=== PATIENT | female | born 1945 | race Caucasian/White ===

== ENCOUNTER 2016-09-21 14:41 | Observation (INO) | payer MEDICARE, OTHER ==
[~2016-09-21] VITALS: Ht 157.5 cm; Wt 144.1 kg
[~2016-09-21 14:41] MED LIST: CHOL50006 PO; DICL50TA2 PO; DIGO0.12 PO; DIPH25 PO; DUONI NEB; HYDRO.5%T TOP; LISI2.5T3 PO; MAGN500T4 PO; METO25TA6 PO; ONDA4 PO; OXYC5 PO; PROT40TA PO; REGL5TAB PO; ROBIDMS PO; WARF-20 PO
[2016-09-21 14:56] VITALS: BP 133/81; PULSE 84; RESP 22; TEMP 98.7; O2SAT 98
[2016-09-21 15:07] VITALS: RESP 22; O2SAT 96
--- NOTE | 2016-09-21 15:11 | PD ---
HPI Chief Complaint: Respiratory Symptoms Time Seen by Provider: 15:04 Travel History International Travel<30 days: No Contact w/Intl Traveler<30days: No Traveled to known affect area: No History of Present Illness HPI 71-year-old female patient with history of atrial fibrillation on Coumadin, CHF , asthma, SLE, rheumatoid arthritis, presents to the ER today because she states that she had her Lasix decreased by half by Dr. Thompson, her mechanical maintenance engineer , because of dyspnea on exertion and shortness of breath over the last week's worsening in the last few days. She has noticed bilateral leg swelling. She has been coughing without significant phlegm production. She denies any fevers , chest pains, or other symptoms. She states that the symptoms worsen with any exertion or laying down, uses 2 pillows to sleep. Modifying Factors: None Associated Signs & Symptoms: Shortness of breath Risk Factors: CHF PFSH Past Medical History Hx Anticoagulant Therapy: Yes (WARFARIN) Asthma: No Atrial Fibrillation: Yes Autoimmune Disease: Yes (LUPUS, RA) Heart Rhythm Problems: Yes (AFIB) Cancer: No Cardiovascular Problems: No High Cholesterol: No Chemotherapy: No Chest Pain: No Congestive Heart Failure: No COPD: Yes Cerebrovascular Accident: No Diabetes: No Endocrine: No Genitourinary: No Hypertension: Yes Immune Disorder: Yes Musculoskeletal: Yes (OSTEOPOROSIS) Neurologic: No Psychiatric: No Reproductive: No Respiratory: Yes (ASTHMA) Migraines: No Seizures: No Sleep Apnea: Yes Tetanus Vaccination: Unknown Influenza Vaccination: Yes Past Surgical History Abdominal Surgery: No AICD: No Arteriovenous Shunt: No Cardiac Surgery: No Ear Surgery: No Eye Surgery: No Genitourinary Surgery: No Gynecologic Surgery: Yes (HYSTERECTOMY) Hysterectomy: Yes Insulin Pump: No Joint Replacement: No Oral Surgery: No Pacemaker: No Thoracic Surgery: No Social History Alcohol Use: Yes (OCCASIONALLY) Tobacco Use: No Substance Use: No Allergies-Medications (Allergen,Severity, Reaction): Coded Allergies: Talwin (Verified Allergy, Severe, Hives, 09/21/16) Verapamil (Verified Allergy, Severe, Hives, 09/21/16) Contrast Media (Verified Allergy, Unknown, 09/21/16) Reported Meds & Prescriptions Reported Meds & Active Scripts Active Reported Furosemide 40 Mg Tab 40 Mg PO DAILY Warfarin 3 Mg Tab 3.75 Mg PO HS Metoprolol Succinate ER 24 HR (Metoprolol Succinate) 50 Mg Tab 50 Mg PO DAILY Mag-Delay (Magnesium Chloride) 64 Mg Tab Unknown Dose PO DAILY Digoxin 0.25 Mg Tab 0.0625 Mg PO FRIDAY TAKEN FRI,FRI, Vitamin D-1000 (Cholecalciferol) 1,000 Unit Tab 5,000 Units PO DAILY Review of Systems Except as stated in HPI: all other systems reviewed are Neg Physical Exam Narrative GENERAL: Well-developed elderly white female patient currently in mild respiratory distress. Awake and oriented 3. SKIN: Focused skin assessment warm/dry. HEAD: Atraumatic. Normocephalic. EYES: Pupils equal and round. No scleral icterus. No injection or drainage. ENT: No nasal bleeding or discharge. Mucous membranes pink and moist. NECK: Trachea midline. No JVD. CARDIOVASCULAR: Irregularly irregular. RESPIRATORY: No accessory muscle use. Decreased throughout bilaterally. GASTROINTESTINAL: Abdomen soft, non-tender, nondistended. Hepatic and splenic margins not palpable. MUSCULOSKELETAL: No obvious deformities. No clubbing. No cyanosis. Bilateral pitting edema the legs. NEUROLOGICAL: Awake and alert. No obvious cranial nerve deficits. Motor grossly within normal limits. Normal speech. PSYCHIATRIC: Appropriate mood and affect; insight and judgment normal. Data Data Last Documented VS Vital Signs Date Time Temp Pulse Resp B/P Pulse Ox O2 Delivery O2 Flow Rate FiO2 09/21/16 15:07 96 Nasal Cannula 2 09/21/16 15:07 22 09/21/16 14:56 98.7 84 133/81 Orders Complete Blood Count With Diff (09/21/16 15:04) Comprehensive Metabolic Panel (09/21/16 15:04) B-Type Natriuretic Peptide (09/21/16 15:04) Act Partial Throm Time (Ptt) (09/21/16 15:04) Prothrombin Time / Inr (Pt) (09/21/16 15:04) Ckmb (Isoenzyme) Profile (09/21/16 15:04) Troponin I (09/21/16 15:04) Iv Access Insert/Monitor (09/21/16 15:04) Electrocardiogram (09/21/16 15:04) Ecg Monitoring (09/21/16 15:04) Oximetry (09/21/16 15:04) Oxygen Administration (09/21/16 15:04) Chest, Single Ap (09/21/16 15:04) Sodium Chloride 0.9% Flush (Ns Flush) (09/21/16 15:15) Acetaminophen (Tylenol) (09/21/16 16:00) Furosemide Inj (Lasix Inj) (09/21/16 16:00) Labs Laboratory Tests Test 09/21/16 15:10 White Blood Count 9.5 TH/MM3 Red Blood Count 3.95 MIL/MM3 Hemoglobin 11.9 GM/DL Hematocrit 37.6 % Mean Corpuscular Volume 95.3 FL Mean Corpuscular Hemoglobin 30.2 PG Mean Corpuscular Hemoglobin 31.7 % Concent Red Cell Distribution Width 19.0 % Platelet Count 210 TH/MM3 Mean Platelet Volume 8.3 FL Neutrophils (%) (Auto) 76.6 % Lymphocytes (%) (Auto) 12.3 % Monocytes (%) (Auto) 8.5 % Eosinophils (%) (Auto) 2.1 % Basophils (%) (Auto) 0.5 % Neutrophils # (Auto) 7.3 TH/MM3 Lymphocytes # (Auto) 1.2 TH/MM3 Monocytes # (Auto) 0.8 TH/MM3 Eosinophils # (Auto) 0.2 TH/MM3 Basophils # (Auto) 0.0 TH/MM3 CBC Comment AUTO DIFF Differential Comment AUTO DIFF CONFIRMED Platelet Estimate NORMAL Platelet Morphology Comment NORMAL Basophilic Stippling FAINT Prothrombin Time 26.5 SEC Prothromb Time International 2.3 RATIO Ratio Activated Partial 33.4 SEC Thromboplast Time Sodium Level 141 MEQ/L Potassium Level 4.5 MEQ/L Chloride Level 102 MEQ/L Carbon Dioxide Level 31.9 MEQ/L Anion Gap 7 MEQ/L Blood Urea Nitrogen 34 MG/DL Creatinine 1.80 MG/DL Estimat Glomerular Filtration 28 ML/MIN Rate Random Glucose 135 MG/DL Calcium Level 8.4 MG/DL Total Bilirubin 0.7 MG/DL Aspartate Amino Transf 22 U/L (AST/SGOT) Alanine Aminotransferase 25 U/L (ALT/SGPT) Alkaline Phosphatase 100 U/L Total Creatine Kinase 50 U/L Troponin I LESS THAN 0.02 NG/ML B-Type Natriuretic Peptide 598 PG/ML Total Protein 8.0 GM/DL Albumin 3.4 GM/DL MDM Medical Decision Making Medical Screen Exam Complete: Yes Emergency Medical Condition: Yes Medical Record Reviewed: Yes Interpretation(s) EKG shows A. fib at a rate of 78 bpm. Laboratory Tests Test 09/21/16 15:10 Red Blood Count 3.95 MIL/MM3 (4.00-5.30) Mean Corpuscular Hemoglobin 31.7 % Concent (32.0-36.0) Red Cell Distribution Width 19.0 % (11.6-17.2) Neutrophils (%) (Auto) 76.6 % (16.0-70.0) Monocytes (%) (Auto) 8.5 % (0.0-8.0) Basophilic Stippling FAINT (NORMAL) Prothrombin Time 26.5 SEC (9.8-11.6) Activated Partial 33.4 SEC Thromboplast Time (24.3-30.1) Blood Urea Nitrogen 34 MG/DL (7-18) Creatinine 1.80 MG/DL (0.50-1.00) Estimat Glomerular Filtration 28 ML/MIN (>89) Rate Random Glucose 135 MG/DL (74-106) Calcium Level 8.4 MG/DL (8.5-10.1) Troponin I LESS THAN 0.02 NG/ML (0.02-0.05) B-Type Natriuretic Peptide 598 PG/ML (0-100) Last 24 hours Impressions Chest X-Ray 09/21/16 1504 Signed Impressions: Service Date/Time: Wednesday, September 21, 2016 15:10 - CONCLUSION: No infiltrate or other acute abnormality demonstrated. Mild, stable compensated cardiomegaly. Wenceslao Hill MD Differential Diagnosis Shortness of breath, dyspnea on exertionCHF versus asthma exacerbation versus pneumonia Narrative Course Chest x-ray did not show any signs of pneumonia, compensated. Her lab work is fairly unremarkable. Her BNP is 590. However, patient is quite symptomatic and Lasix was given in the ER. At this point, my plan would be to admit her for further treatment. Case was discussed with Dr. Wise for admission. Diagnosis Primary Impression: CHF exacerbation Admitting Information Admitting Physician Requests: it Kaila Zuniga MD Sep 21, 2016 15:11
[2016-09-21] MEDS ORDERED: SODIUM CHLORIDE 0.9% FLUSH 10 ML FLUSH IVF PRN (15:15)
[2016-09-21 15:19] LABS: AUTOMATED NEUTROPHIL # 7.3 TH/MM3 (1.8-7.7); BASOPHIL % 0.5 % (0.0-2.0); EOSINOPHIL # 0.2 TH/MM3 (0-0.4); EOSINOPHIL % 2.1 % (0.0-4.0); HEMATOCRIT 37.6 % (35.0-46.0); LYMPH % 12.3 % (9.0-44.0); LYMPHOCYTE # 1.2 TH/MM3 (1.0-4.8); MEAN CELL VOLUME 95.3 FL (80.0-100.0); MEAN CORPUSCULAR HEMOGLOBIN 30.2 PG (27.0-34.0); MEAN CORPUSCULAR HGB CONC 31.7 % (32.0-36.0); MONO % 8.5 % (0.0-8.0); NEUT % 76.6 % (16.0-70.0); PLATELET COUNT 210 TH/MM3 (150-450); RED BLOOD COUNT 3.95 MIL/MM3 (4.00-5.30); WHITE BLOOD COUNT 9.5 TH/MM3 (4.0-11.0)
[2016-09-21 15:30] LABS: CHLORIDE 102 MEQ/L (98-107); POTASSIUM 4.5 MEQ/L (3.5-5.1); SODIUM (NA) 141 MEQ/L (136-145)
[2016-09-21] MEDS ORDERED: WARF-58 PO (15:32)
[2016-09-21] MEDS ORDERED: VITA1000 PO (15:32)
[2016-09-21] MEDS ORDERED: MAG-TAB PO (15:32)
[2016-09-21] MEDS ORDERED: DIGO0.25 PO (15:32)
[2016-09-21] MEDS ORDERED: METO50TA11 PO (15:32)
[2016-09-21] MEDS ORDERED: FURO40TA PO (15:32)
[2016-09-21 15:34] LABS: ANION GAP 7 MEQ/L (5-15); BICARBONATE 31.9 MEQ/L (21.0-32.0); BLOOD UREA NITROGEN 34 MG/DL (7-18); HEMO FLAGS AUTO DIFF
[2016-09-21 15:37] LABS: ALT (GPT) 25 U/L (10-53); AST (GOT) 22 U/L (15-37); GLOMERULAR FILTRATION RATE 28 ML/MIN (>89)
[2016-09-21 15:38] LABS: TOTAL BILIRUBIN ADULT 0.7 MG/DL (0.2-1.0)
--- NOTE | 2016-09-21 15:39 | RADHPO ---
EXAM DATE/TIME: 09/21/2016 15:10 [facility] COMPARISON: No previous studies available for comparison. INDICATIONS : Shortness of breath. MEDICAL HISTORY : Hypertension. Chronic obstructive pulmonary disease. Emphysema. A-fib. SURGICAL HISTORY : None. ENCOUNTER: Initial ACUITY: 3 weeks PAIN SCORE: 0/10 LOCATION: Bilateral chest FINDINGS: No infiltrate seen. No pleural effusion or pneumothorax. Mild cardiomegaly and mediastinal vessel tor tuosity again noted. Severe chronic arthropathy again seen of both glenohumeral joints. CONCLUSION: No infiltrate or other acute abnormality demonstrated. Mild, stable compensated cardiomegaly. Wenceslao Hill MD on September 21, 2016 at 15:36 Board Certified Radiologist. This report was verified electronically.
[2016-09-21 15:40] LABS: ALKALINE PHOSPHATASE 100 U/L (45-117); APTT (PATIENT) 33.4 SEC (24.3-30.1); INTERNATIONAL NORMALIZED RATIO 2.3 RATIO; PROTHROMBIN TIME - PATIENT 26.5 SEC (9.8-11.6)
[2016-09-21 15:54] LABS: CREATINE KINASE 50 U/L (26-192)
[2016-09-21 15:59] LABS: PLATELET ESTIMATE SMEAR NORMAL (NORMAL); PLATELET MORPHOLOGY NORMAL (NORMAL); SCAN/DIFF AUTO DIFF CONFIRMED
[2016-09-21] MEDS ORDERED: FUROSEMIDE 40 MG/4 ML VIAL IV PUSH ONE (16:00)
[2016-09-21] MEDS ORDERED: ACETAMINOPHEN 325 MG TAB PO ONE (16:00)
[2016-09-21] MEDS ORDERED: SODIUM CHLORIDE 0.9% FLUSH 10 ML FLUSH IV FLUSH PRN (17:00)
[2016-09-21] MEDS ORDERED: MAGNESIUM HYDROXIDE SUSP 30 ML CUP PO PRN (17:00)
[2016-09-21] MEDS ORDERED: HEPARIN SODIUM - SQ 10,000 UNITS/ML VIAL SQ SCH (17:00)
[2016-09-21] MEDS ORDERED: SENNOSIDES 8.6 MG TAB PO PRN (17:00)
[2016-09-21] MEDS ORDERED: LACTULOSE SYRUP 20 GM/30 ML CUP PO PRN (17:00)
[2016-09-21] MEDS ORDERED: BISACODYL 10 MG SUPP RECTAL PRN (17:00)
[2016-09-21] MEDS ORDERED: NALOXONE HCL 0.4 MG/ML AMP IV PRN (17:00)
--- NOTE | 2016-09-21 17:51 | HHI.HP ---
[facility] Service [facility] Primary Care Physician Shauna Mendoza MD Admission Diagnosis CHF exacerbation Diagnoses: (1) Acute on chronic diastolic congestive heart failure Diagnosis: Principal (2) Shortness of breath dyspnea Diagnosis: Principal (3) Elevated brain natriuretic peptide (BNP) level Diagnosis: Principal (4) Chronic kidney disease, stage 3 Diagnosis: Secondary (5) Hypertension Diagnosis: Secondary (6) Atrial fibrillation Diagnosis: Secondary Chief Complaint: Shortness of breath and dyspnea Travel History International Travel<30 Days: No Contact w/Intl Traveler <30 Da: No Traveled to Known Affected Are: No History of Present Illness Written by Mani Haney, acting as scribe for Dr. Wise on 09/21/16 at 17: 27. 71-year-old female with known history of chronic diastolic congestive heart failure, chronic kidney disease stage III, pulmonary hypertension, atrial fibrillation, obstructive sleep apnea, history of tobacco use, daily ETOH use, Mnire's disease, Lupus, Rheumatoid arthritis who presented to hospital because of shortness of breath, dyspnea on exertion. Patient indicates all of her symptoms started back around September 03 when she went to her primary medical doctor's office and was told to discontinue her Lasix. She went to her casting trucker office a few days later, Dr. Thompson who notified her to continue taking her Lasix at half dose of 20 mg a day. Patient states that ever since she decreased her Lasix she progressively got more short of breath, dyspnea on exertion, lower extremity swelling. Patient states that she drinks 4+ bottle sales a day and to Gin and tonics at least 3 times a week. She denies being told to be on a fluid restriction. She does not check her weights daily. She indicates that anything she has lost over 20 pounds since the last time she was here in the hospital. Patient indicates that whenever she gets short of breath and dyspneic she develops a pressure type sensation over her entire lower ribs whenever she takes a deep breath. She is not expressing any discomfort at this time. Denies any nausea, vomiting, diaphoresis, lightheadedness, dizziness. Review of Systems Constitutional: COMPLAINS OF: Weight loss, DENIES: Diaphoretic episodes, Fatigue, Fever, Weight gain, Chills, Dizziness, Change in appetite, Night Sweats Eyes: DENIES: Blurred vision, Diplopia, Eye inflammation, Eye pain, Vision loss , Photosensitivity, Double Vision Ears, nose, mouth, throat: DENIES: Vertigo, Nasal discharge, Throat pain, Ear Pain, Running Nose, Sinus Pain Respiratory: COMPLAINS OF: Shortness of breath, DENIES: Apneas, Cough, Snoring , Wheezing, Hemoptysis, Sputum production Cardiovascular: COMPLAINS OF: Dyspnea on Exertion, DENIES: Chest pain, Palpitations, Syncope, Lower Extremity Edema, Orthopnea Gastrointestinal: DENIES: Abdominal pain, Black stools, Bloody stools, Constipation, Diarrhea, Nausea, Vomiting, Difficulty Swallowing, Anorexia Neurologic: DENIES: Abnormal gait, Headache, Localized weakness, Paresthesias, Seizures, Speech Problems, Tremor, Poor Balance Past Family Social History Past Medical History Lupus Atrial fibrillation Rheumatoid arthritis Obstructive sleep apnea Pulmonary Hypertension Mnire's disease Chronic kidney disease stage III Chronic diastolic congestive heart failure Past Surgical History Hysterectomy Reported Medications Reported Meds & Active Scripts Active Reported Furosemide 40 Mg Tab 40 Mg PO DAILY Warfarin 3 Mg Tab 3.75 Mg PO HS Metoprolol Succinate ER 24 HR (Metoprolol Succinate) 50 Mg Tab 50 Mg PO DAILY Mag-Delay (Magnesium Chloride) 64 Mg Tab Unknown Dose PO DAILY Digoxin 0.25 Mg Tab 0.0625 Mg PO FRIDAY TAKEN FRI,FRI, Vitamin D-1000 (Cholecalciferol) 1,000 Unit Tab 5,000 Units PO DAILY Allergies: Coded Allergies: Talwin (Verified Allergy, Severe, Hives, 09/21/16) Verapamil (Verified Allergy, Severe, Hives, 09/21/16) Contrast Media (Verified Allergy, Unknown, 09/21/16) Family History Reviewed and significant for mother and father living to old age, father to 103 and mother to 93 mother had osteoporosis Social History Patient quit smoking 40 years ago, prior to that she states that she smoke 1 1- 2 packs a week for 10 years, Patient does drink 1 - 3 Gin and tonics daily. Patient denies any illicit drug use Physical Exam Vital Signs Vital Signs Date Time Temp Pulse Resp B/P Pulse Ox O2 Delivery O2 Flow Rate FiO2 09/21/16 15:07 96 Nasal Cannula 2 09/21/16 15:07 22 96 Nasal Cannula 2 09/21/16 15:02 98 Nasal Cannula 2 09/21/16 14:56 98.7 84 22 133/81 98 Physical Exam GENERAL: Well-developed, obese with BMI 47.2, in no acute distress. alert and orientated HEENT: Head is normocephalic without any lesions or masses noted. Facial features are symmetric. Eyes: Pupils equal round reactive to light. Extraocular muscles are intact. Conjunctivae were clear. Oropharyngeal: Pharynx without any erythema edema. Tongue is midline without deviation. Buccal mucosa is moist without any masses or lesions NECK: Supple without any masses. Trachea midline no deviation. No JVD, no bruits are appreciated CARDIAC: Irregular rhythm, irregular rate. S1/S2 are heard. No murmurs gallops or rubs. LUNGS: Diminished breath sounds noted bilaterally. No wheeze, rhonchi or rales. No use of accessory muscles on inspiration or expiration. ABDOMEN: Soft, nontender. Nondistended. Bowel sounds heard in all 4 quadrants. No organomegaly or masses. Negative rebound, negative guarding EXTREMITIES: 2+ pitting edema noted bilateral lower extremities, mild erythema noted on the medial aspect of the right lower extremity pulses are equal bilaterally. No cyanosis or clubbing NEUROLOGY: Mood and affect appear appropriate. Cranial nerves II through XII grossly intact. Muscle strength 5/5 in upper and lower extremities bilaterally. Deep tendon reflexes are 2+ in upper and lower extremities bilaterally. Laboratory Laboratory Tests Test 09/21/16 15:10 White Blood Count 9.5 Red Blood Count 3.95 Hemoglobin 11.9 Hematocrit 37.6 Mean Corpuscular Volume 95.3 Mean Corpuscular Hemoglobin 30.2 Mean Corpuscular Hemoglobin 31.7 Concent Red Cell Distribution Width 19.0 Platelet Count 210 Mean Platelet Volume 8.3 Neutrophils (%) (Auto) 76.6 Lymphocytes (%) (Auto) 12.3 Monocytes (%) (Auto) 8.5 Eosinophils (%) (Auto) 2.1 Basophils (%) (Auto) 0.5 Neutrophils # (Auto) 7.3 Lymphocytes # (Auto) 1.2 Monocytes # (Auto) 0.8 Eosinophils # (Auto) 0.2 Basophils # (Auto) 0.0 CBC Comment AUTO DIFF Differential Comment AUTO DIFF CONFIRMED Platelet Estimate NORMAL Platelet Morphology Comment NORMAL Basophilic Stippling FAINT Prothrombin Time 26.5 Prothromb Time International 2.3 Ratio Activated Partial 33.4 Thromboplast Time Sodium Level 141 Potassium Level 4.5 Chloride Level 102 Carbon Dioxide Level 31.9 Anion Gap 7 Blood Urea Nitrogen 34 Creatinine 1.80 Estimat Glomerular Filtration 28 Rate Random Glucose 135 Calcium Level 8.4 Total Bilirubin 0.7 Aspartate Amino Transf 22 (AST/SGOT) Alanine Aminotransferase 25 (ALT/SGPT) Alkaline Phosphatase 100 Total Creatine Kinase 50 Troponin I LESS THAN 0.02 B-Type Natriuretic Peptide 598 Total Protein 8.0 Albumin 3.4 Result Diagram: 09/21/16 1510 09/21/16 1510 Imaging Last Impressions Chest X-Ray 09/21/16 1504 Signed Impressions: Service Date/Time: Friday, September 21, 2016 15:10 - CONCLUSION: No infiltrate or other acute abnormality demonstrated. Mild, stable compensated cardiomegaly. Wenceslao Hill MD Assessment and Plan Assessment and Plan //Acute on chronic diastolic congestive heart failure -Patient presented with shortness of breath, dyspnea on exertion, lower extremity edema -Likely secondary to multiple reasons to include decrease in diuretic, increase fluid intake at home, no daily management of her CHF -Patient did have elevated BNP, however chest x-ray did not indicate any congestive pattern -Patient given Lasix 40 mg IV 1, we'll continue Lasix at higher dose 40 mg daily -Most recent echocardiogram 10/25/15 shows ejection fraction 55%. Normal systolic function. Very mild aortic stenosis -Beta shelia will be continued, med reconciliation needs to be updated, does indicate she was on BEULAH inhibitor this needs to be confirmed -Fluid restriction 1500 -Patient does not want to have Mcdaniels placed for accurate measurement of fluid input/output //Chronic kidney disease stage III -Upon review medical records it does appear as if her renal functions are at baseline -Continue monitor renal function -Avoid nephrotoxins //Chronic atrial fibrillation -Continue home medication to include beta shelia, digoxin and Coumadin //Alcohol abuse, monitor for withdrawals -Start thiamine and folic acid -Ativan as needed for seizures -Librium as needed for withdrawals //DVT prevention -Patient on Coumadin with INR 2.2 Code Status Full code Discussed Condition With discussed with patient, nurse, ED physician. This note was transcribed by scribbry [Mani Haney]. I, Dr. Maciej Wise personally performed the history, physical exam, and medical decision making; and confirmed the accuracy of the information in the transcribed note. Authenticated by Dr. Maciej Wise on 09/22/16 at 18:28. Problem Qualifiers (1) Hypertension: Qualified Code: I15.9 - Secondary hypertension (2) Atrial fibrillation: Qualified Code: I48.91 - Atrial fibrillation, unspecified type Mani Haney Sep 21, 2016 17:51 Maciej Wise MD Sep 22, 2016 18:29
[2016-09-21] MEDS ORDERED: chlordiazePOXIDE 25 MG CAP PO PRN (18:00)
[2016-09-21] MEDS ORDERED: LORazepam 2 MG/ML VIAL IV PUSH PRN (18:00)
[2016-09-21 18:10] VITALS: BP 130/86
[2016-09-21] MEDS: THIAMINE HCL 100 MG TAB PO SCH (19:38)
[2016-09-21] MEDS: FOLIC ACID 1 MG TAB PO SCH (19:38)
[2016-09-21 20:08] VITALS: PULSE 90
[2016-09-21 20:52] VITALS: BP 122/74; PULSE 53; RESP 12; TEMP 97.1; O2SAT 96
[2016-09-21] MEDS: ACETAMINOPHEN 500 MG CPLT PO PRN (20:52)
[2016-09-21] MEDS: DOCUSATE SODIUM 50 MG/SENNA 8.6 MG TAB PO SCH (20:52)
[2016-09-21] MEDS: WARFARIN SOD 4 MG TAB PO SCH (20:52)
[2016-09-21] MEDS: SODIUM CHLORIDE 0.9% FLUSH 10 ML FLUSH IV FLUSH SCH (20:52)
[2016-09-22] VITALS (8 sets, daily range): BP systolic 106–125; BP diastolic 70–88; PULSE 75–101; RESP 18–22; TEMP 96.6–98.2; O2SAT 92–99
[2016-09-22 06:34] LABS: AUTOMATED NEUTROPHIL # 5.4 TH/MM3 (1.8-7.7); BASOPHIL # 0.1 TH/MM3 (0-0.2); BASOPHIL % 0.8 % (0.0-2.0); EOSINOPHIL # 0.3 TH/MM3 (0-0.4); EOSINOPHIL % 3.8 % (0.0-4.0); HEMATOCRIT 33.4 % (35.0-46.0); HEMO FLAGS DIFF FINAL; LYMPHOCYTE # 1.3 TH/MM3 (1.0-4.8); MEAN CELL VOLUME 94.7 FL (80.0-100.0); MEAN CORPUSCULAR HEMOGLOBIN 29.9 PG (27.0-34.0); MEAN CORPUSCULAR HGB CONC 31.5 % (32.0-36.0); MONO % 8.7 % (0.0-8.0); NEUT % 69.7 % (16.0-70.0); PLATELET COUNT 176 TH/MM3 (150-450); RED BLOOD COUNT 3.53 MIL/MM3 (4.00-5.30); RED CELL DISTRIBUTION WIDTH 18.6 % (11.6-17.2); WHITE BLOOD COUNT 7.8 TH/MM3 (4.0-11.0)
[2016-09-22 06:39] LABS: CHLORIDE 103 MEQ/L (98-107); POTASSIUM 4.6 MEQ/L (3.5-5.1); SODIUM (NA) 142 MEQ/L (136-145)
[2016-09-22 06:44] LABS: ANION GAP 5 MEQ/L (5-15); BICARBONATE 34.5 MEQ/L (21.0-32.0); BLOOD UREA NITROGEN 35 MG/DL (7-18)
[2016-09-22 06:47] LABS: ALT (GPT) 22 U/L (10-53); AST (GOT) 13 U/L (15-37); GLOMERULAR FILTRATION RATE 26 ML/MIN (>89)
[2016-09-22 06:49] LABS: TOTAL BILIRUBIN ADULT 0.5 MG/DL (0.2-1.0)
[2016-09-22 06:50] LABS: ALKALINE PHOSPHATASE 93 U/L (45-117)
[2016-09-22 06:56] LABS: INTERNATIONAL NORMALIZED RATIO 2.2 RATIO; PROTHROMBIN TIME - PATIENT 24.9 SEC (9.8-11.6)
[2016-09-22] MEDS: ACETAMINOPHEN 500 MG CPLT PO PRN ×3 (07:06→21:06)
[2016-09-22] MEDS ORDERED: METOPROLOL SUCCINATE 50 MG EXTENDED RELEASE TAB PO SCH (09:00)
[2016-09-22] MEDS: DOCUSATE SODIUM 50 MG/SENNA 8.6 MG TAB PO SCH ×2 (09:00→21:03)
--- NOTE | 2016-09-22 09:42 | EKG ---
Date Performed: 09/21/2016 Time Performed: 15:06:14 PTAGE: 71 years EKG: Atrial fibrillation Indeterminate axis Incomplete RBBB Inferior ST-T changes may be due to myocardial ischemia Abnormal ECG PREVIOUS TRACING : 10/23/2015 16.44 DOCTOR: Fausto Carnes Interpretating Date/Time 09/22/2016 09:35:05
[2016-09-22] MEDS: THIAMINE HCL 100 MG TAB PO SCH (09:44)
[2016-09-22] MEDS: DIGOXIN 0.125 MG TAB PO SCH (09:44)
[2016-09-22] MEDS: CHOLECALCIFEROL (VIT D3) 1000 UNIT TAB PO SCH (09:45)
[2016-09-22] MEDS: FUROSEMIDE 40 MG TAB PO SCH (09:45)
[2016-09-22] MEDS: METOPROLOL SUCCINATE 50 MG EXTENDED RELEASE TAB PO SCH (09:46)
[2016-09-22] MEDS: FOLIC ACID 1 MG TAB PO SCH (09:52)
[2016-09-22] MEDS: SODIUM CHLORIDE 0.9% FLUSH 10 ML FLUSH IV FLUSH SCH ×2 (09:53→21:05)
--- NOTE | 2016-09-22 10:29 | HHI.PR ---
Subjective Remarks Written by Mani Haney, acting as scribe for Dr. Wise on 09/22/16 at 10: 22. Patient seen and examined today with Dr. Wies. Patient sitting on bedside putting her oxygen on. Patient indicates that she is still short of breath. Unknown exactly how much fluid patient diuresed, patient did not want Mcdaniels placement yesterday and now accurate monitoring of output. Patient states that she does feel a bit better, however she thinks that she needs at least 1 more day in the hospital for management. Objective Vitals Vital Signs Date Time Temp Pulse Resp B/P Pulse Ox O2 Delivery O2 Flow Rate FiO2 09/22/16 08:06 20 09/22/16 08:00 87 09/22/16 08:00 97.6 79 20 106/76 96 09/22/16 04:35 97.8 80 18 110/88 94 09/22/16 00:20 96.7 75 22 119/72 92 09/21/16 20:52 97.1 53 12 122/74 96 09/21/16 20:08 90 09/21/16 20:08 90 09/21/16 18:10 82 20 130/86 99 Nasal Cannula 2 09/21/16 15:07 96 Nasal Cannula 2 09/21/16 15:07 22 96 Nasal Cannula 2 09/21/16 15:02 98 Nasal Cannula 2 09/21/16 14:56 98.7 84 22 133/81 98 I/O 09/21/16 09/21/16 09/21/16 09/22/16 09/22/16 09/22/16 07:00 15:00 23:00 07:00 15:00 23:00 Output Total 200 ml Balance -200 ml Output Urine Total 200 ml # Voids 3 4 # Bowel Movements 1 Result Diagram: 09/22/16 0605 09/22/16 0605 Objective Remarks GENERAL: Well-developed, obese with BMI 47.2, in no acute distress. alert and orientated HEENT: Head is normocephalic without any lesions or masses noted. Facial features are symmetric. Eyes: Extraocular muscles are intact. Conjunctivae were clear. NECK: Supple without any masses. Trachea midline no deviation. No JVD, CARDIAC: Irregular rhythm, irregular rate. S1/S2 are heard. No murmurs gallops or rubs. LUNGS: Diminished breath sounds noted bilaterally. No wheeze, rhonchi or rales. No use of accessory muscles on inspiration or expiration. ABDOMEN: Soft, nontender. Nondistended. Bowel sounds heard in all 4 quadrants. No organomegaly or masses. Negative rebound, negative guarding EXTREMITIES: 1+ pitting edema noted bilateral lower extremities, mild erythema has improved on the medial aspect of the right lower extremity pulses are equal bilaterally. No cyanosis or clubbing NEUROLOGY: Mood and affect appear appropriate. Cranial nerves II through XII grossly intact. Moving all extremities, speech is clear Urinary Catheter: No Vascular Central Line Catheter: No A/P Assessment and Plan //Acute on chronic diastolic congestive heart failure -Patient presented with shortness of breath, dyspnea on exertion, lower extremity edema -Likely secondary to multiple reasons to include decrease in diuretic, increase fluid intake at home, no daily management of her CHF -Patient did have elevated BNP, however chest x-ray did not indicate any congestive pattern -Patient given Lasix 40 mg IV 1, we'll continue Lasix 40 mg daily -Most recent echocardiogram 10/25/15 shows ejection fraction 55%. Normal systolic function. Very mild aortic stenosis -Beta shelia will be continued, med reconciliation needs to be updated, does indicate she was on BEULAH inhibitor this needs to be confirmed -Fluid restriction 1500 ml/day -Patient does not want to have Mcdaniels placed for accurate measurement of fluid input/output -Will need strict input and output monitoring //Chronic kidney disease stage III, stable -Upon review medical records it does appear as if her renal functions are at baseline -Continue monitor renal function -Avoid nephrotoxins //Chronic atrial fibrillation -Continue home medication to include beta shelia, digoxin and Coumadin //Alcohol abuse, monitor for withdrawals -Continue thiamine and folic acid -Ativan as needed for seizures -Librium as needed for withdrawals //sleep apnea. //severe pulmonary hypertension. Likely caused by untreated sleep apnea. Fluid restrictions. Continue anticoagulationfor history of pulmonary embolism.Patient will need referral to pulmonology as outpatient //DVT prevention -Patient on Coumadin with INR 2.2 Discharge Planning Discharge planning 2448 hrs -we'll need referral to pulmonology for workup of untreated sleep apnea, which is likely primary cause for pulmonary hypertension This note was transcribed by jonibbry [Mani Haney]. I, Dr. Maciej Wise personally performed the history, physical exam, and medical decision making; and confirmed the accuracy of the information in the transcribed note. Authenticated by Dr. Maciej Wise on 09/22/16 at 18:29. Mani Haney Sep 22, 2016 10:29 Maciej Wise MD Sep 22, 2016 18:31
[2016-09-22] MEDS: WARFARIN SOD 4 MG TAB PO SCH (15:10)
--- NOTE | 2016-09-22 17:36 | ECHRPT ---
Indication: heart failure CONCLUSIONS Normal left ventricular size. Wall thickness is normal. The left ventricular systolic function is hyperdynamic with an estimated ejection fraction in the ra nge of 65- 70%. The right ventricle is mildly dilated. The right ventricular systoilc function is mildly decreased. The left atrial size is mildly dilated. The right atrial size is mildly dilated. Mitral annular calcification is present. Moderate thickening of the mitral valve leaflets. Moderate thickening of the aortic valve leaflets. Aortic valve sclerosis is present. Mild to moderate aortic valve stenosis. Aortic valve mean gradient is 20.2 mmHg. Max gradient is 38 mmHg. There is mild tricuspid valve regurgitation. There is estimated severe pulmonary hypertension present ( 79 mmHg). The pulmonary valve is not well visualized. The inferior vena cava is dilated. BP: 106 / 76 HR: 87 Rhythm: Other MEASUREMENTS (Male / Female) Normal Values Technical Quality:Technically difficult study, Efrem r 2D ECHO LV Diastolic Diameter PLAX 4.2 cm 4.2 - 5.9 / 3.9 - 5.3 cm LV Systolic Diameter PLAX 3.0 cm IVS Diastolic Thickness 0.9 cm 0.6 - 1.0 / 0.6 - 0.9 cm LVPW Diastolic Thickness 0.7 cm 0.6 - 1.0 / 0.6 - 0.9 cm LV Relative Wall Thickness 0.4 RV Internal Dim ED PLAX 2.5 cm LA Systolic Diameter LX 3.6 cm 3.0 - 4.0 / 2.7 - 3.8 cm DOPPLER AV Peak Velocity 308.6 cm/s AV Peak Gradient 38.1 mmHg AV Mean Gradient 20.2 mmHg AV Velocity Time Integral 67.3 cm LVOT Peak Velocity 101.6 cm/s LVOT Peak Gradient 4.1 mmHg LVOT Velocity Time Integral 24.1 cm MV Peak Velocity 157.0 cm/s MV Peak Gradient 9.9 mmHg MV Mean Velocity 84.3 cm/s MV Mean Gradient 4.0 mmHg Mitral E Point Velocity 117.0 cm/s Mitral A Point Velocity 33.9 cm/s Mitral E to A Ratio 3.5 TR Peak Velocity 444.0 cm/s TR Peak Gradient 78.9 mmHg FINDINGS LEFT VENTRICLE Normal left ventricular size. Wall thickness is normal. The left ventricular systolic function is hyperdynamic with an estimated ejection fraction in the ra nge of 65- 70%. RIGHT VENTRICLE The right ventricle is mildly dilated. The right ventricular systoilc function is mildly decreased. LEFT ATRIUM The left atrial size is mildly dilated. RIGHT ATRIUM The right atrial size is mildly dilated. ATRIAL SEPTUM Normal atrial septal thickness without atrial level shunting by limited color doppler interrogation. AORTA The aortic root and proximal ascending aorta are normal in size on limited imaging. MITRAL VALVE Mitral annular calcification is present. Moderate thickening of the mitral valve leaflets. AORTIC VALVE Moderate thickening of the aortic valve leaflets. Aortic valve sclerosis is present. Mild to moderate aortic valve stenosis. Aortic valve mean gradient is 20.2 mmHg. Max gradient is 38 mmHg TRICUSPID VALVE There is mild tricuspid valve regurgitation. There is estimated severe pulmonary hypertension present ( 79 mmHg). PULMONARY VALVE The pulmonary valve is not well visualized. VESSELS The inferior vena cava is dilated. PERICARDIUM No pericardial effusion. Jad Goss MD (Electronically Signed) Final Date:22 September 2016 17:35
[2016-09-23 00:56] VITALS: BP 118/93; PULSE 80; RESP 22; TEMP 95.7; O2SAT 93
[2016-09-23] MEDS: ACETAMINOPHEN 500 MG CPLT PO PRN ×2 (04:04→11:26)
[2016-09-23 04:28] VITALS: BP 125/73; PULSE 95; RESP 18; TEMP 97.8; O2SAT 93
[2016-09-23 06:58] LABS: INTERNATIONAL NORMALIZED RATIO 2.5 RATIO; PROTHROMBIN TIME - PATIENT 28.2 SEC (9.8-11.6)
[2016-09-23 07:00] LABS: POTASSIUM 4.6 MEQ/L (3.5-5.1)
[2016-09-23 07:02] LABS: AUTOMATED NEUTROPHIL # 5.1 TH/MM3 (1.8-7.7); BASOPHIL % 0.3 % (0.0-2.0); EOSINOPHIL # 0.3 TH/MM3 (0-0.4); EOSINOPHIL % 4.3 % (0.0-4.0); HEMATOCRIT 34.5 % (35.0-46.0); HEMO FLAGS DIFF FINAL; LYMPH % 15.5 % (9.0-44.0); LYMPHOCYTE # 1.1 TH/MM3 (1.0-4.8); MEAN CELL VOLUME 96.8 FL (80.0-100.0); MEAN CORPUSCULAR HEMOGLOBIN 31.4 PG (27.0-34.0); MEAN CORPUSCULAR HGB CONC 32.4 % (32.0-36.0); MONO % 10.5 % (0.0-8.0); NEUT % 69.4 % (16.0-70.0); PLATELET COUNT 168 TH/MM3 (150-450); RED BLOOD COUNT 3.57 MIL/MM3 (4.00-5.30); RED CELL DISTRIBUTION WIDTH 19.3 % (11.6-17.2); WHITE BLOOD COUNT 7.3 TH/MM3 (4.0-11.0)
[2016-09-23 07:04] LABS: BICARBONATE 37.3 MEQ/L (21.0-32.0); MAGNESIUM 1.7 MG/DL (1.5-2.5)
[2016-09-23 08:00] VITALS: BP 99/72; PULSE 82; RESP 20; TEMP 97.4; O2SAT 97
[2016-09-23] MEDS: METOPROLOL SUCCINATE 50 MG EXTENDED RELEASE TAB PO SCH (08:44)
[2016-09-23] MEDS: DOCUSATE SODIUM 50 MG/SENNA 8.6 MG TAB PO SCH (08:44)
[2016-09-23] MEDS: DIGOXIN 0.125 MG TAB PO SCH (08:45)
[2016-09-23] MEDS: THIAMINE HCL 100 MG TAB PO SCH (08:46)
[2016-09-23] MEDS: CHOLECALCIFEROL (VIT D3) 1000 UNIT TAB PO SCH (08:46)
[2016-09-23] MEDS: SODIUM CHLORIDE 0.9% FLUSH 10 ML FLUSH IV FLUSH SCH (08:47)
[2016-09-23] MEDS: FOLIC ACID 1 MG TAB PO SCH (08:51)
[2016-09-23] MEDS: FUROSEMIDE 40 MG TAB PO SCH (08:52)
--- NOTE | 2016-09-23 09:20 | HHI.FF ---
Face to Face Verification Diagnosis: (1) Sleep apnea (2) Chronic kidney disease, stage 3 (3) Elevated brain natriuretic peptide (BNP) level (4) Acute on chronic diastolic congestive heart failure (5) Generalized weakness Physical Therapy Order: Evaluate and Treat Home Health Nursing Order: CHF education Nursing assessment with vital signs Instructions: will need home health nurse for medication management. patient will need to measure daily weights, report to PCP if increase in weight over 5 pounds in a week. will need to be on fluid restrictions of 1800ml per day. I have seen patient Stephanie Beauchamp on 09/23/16. My clinical findings support the need for the requested home health care services because: Deconditioned w/ increased weakness Med compliance is questionable I certify that my clinical findings support that this patient is homebound because: Unsafe to leave home unassisted Maciej Wise MD Sep 23, 2016 09:20
[2016-09-23] MEDS ORDERED: METO50TA11 PO (09:23)
[2016-09-23] MEDS ORDERED: DIGO0.12 PO (09:23)
[2016-09-23 12:00] VITALS: BP 98/73; PULSE 74; RESP 20; TEMP 96.6; O2SAT 94
--- NOTE | 2016-09-23 12:19 | HHI.PR ---
Subjective Remarks Patient seen this morning. Says she feels better. Feels like going home. Bilateral lower extremity edema improved. Denies any chest pain or shortness of breath today. She says she has a CPAP machine in [place], however not here because she doesn't want to get the study done. Objective Vital Signs Date Time Temp Pulse Resp B/P Pulse Ox O2 Delivery O2 Flow Rate FiO2 09/23/16 08:00 97.4 82 20 99/72 97 09/23/16 04:28 97.8 95 18 125/73 93 09/23/16 00:56 95.7 80 22 118/93 93 09/22/16 21:57 93 Nasal Cannula 2.00 09/22/16 20:00 96.6 92 20 120/80 95 09/22/16 19:55 83 09/22/16 16:30 20 09/22/16 16:00 97.7 101 20 125/79 97 I/O 09/22/16 09/22/16 09/22/16 09/23/16 09/23/16 09/23/16 07:00 15:00 23:00 07:00 15:00 23:00 Intake Total 240 ml 450 ml Output Total 800 ml 1850 ml 600 ml Balance -560 ml -1400 ml -600 ml Intake Oral 240 ml 450 ml Output Urine Total 800 ml 1850 ml 600 ml # Voids 4 # Bowel Movements 1 0 0 Result Diagram: 09/23/16 0525 09/23/16 0525 Imaging Last Impressions Chest X-Ray 09/21/16 1504 Signed Impressions: Service Date/Time: Wednesday, September 21, 2016 15:10 - CONCLUSION: No infiltrate or other acute abnormality demonstrated. Mild, stable compensated cardiomegaly. Wenceslao Hill MD Objective Remarks GENERAL: Patient sitting up in chair. Off oxygen. Appears comfortable. Alert and oriented 3. SKIN: Warm and dry. HEAD: Normocephalic. EYES: No scleral icterus. No injection or drainage. NECK: Supple, trachea midline. No JVD. CARDIOVASCULAR: Regular rate and rhythm without murmurs, gallops, or rubs. RESPIRATORY: Breath sounds equal bilaterally. No accessory muscle use. GASTROINTESTINAL: Abdomen soft, non-tender, nondistended. MUSCULOSKELETAL: No cyanosis. +1 peripheral edema. Improved from yesterday. BACK: Nontender without obvious deformity. No CVA tenderness. A/P Assessment and Plan ====09/23/16===== Patient reveals that she spends half the year in [place], has a CPAP machine for sleep apnea over there, however does not have one here, and does not want to go through the sleep study here to get one. I advised following up with primary care, obtaining sleep study, CPAP for treatment of obstructive sleep apnea, which is likely the cause of her pulmonary hypertension. Patient will adhere to daily weights at home. We'll have home health for CHF education. We'll pursue sleep study with primary care doctor. She had been taking half of her 40 mg Lasix at home. She will take the whole tablet now. //Acute on chronic diastolic congestive heart failure -Patient presented with shortness of breath, dyspnea on exertion, lower extremity edema -Likely secondary to multiple reasons to include decrease in diuretic, increase fluid intake at home, no daily management of her CHF -Patient did have elevated BNP, however chest x-ray did not indicate any congestive pattern -Patient given Lasix 40 mg IV 1, we'll continue Lasix 40 mg daily -Most recent echocardiogram 10/25/15 shows ejection fraction 55%. Normal systolic function. Very mild aortic stenosis -Beta shelia will be continued, med reconciliation needs to be updated, does indicate she was on BEULAH inhibitor this needs to be confirmed -Fluid restriction 1800 ml/day at home -Patient will adhere to daily weights at home. We'll have home health for CHF education. We'll pursue sleep study with primary care doctor. //Chronic kidney disease stage III, stable -Upon review medical records it does appear as if her renal functions are at baseline -Continue monitor renal function -Avoid nephrotoxins //Chronic atrial fibrillation -Continue home medication to include beta shelia, digoxin and Coumadin //Alcohol abuse, monitor for withdrawals -Continue thiamine and folic acid -Ativan as needed for seizures -Librium as needed for withdrawals //sleep apnea. //severe pulmonary hypertension. Likely caused by untreated sleep apnea. -hypertension, patient confirms a diagnosis of pulmonary hypertension //Pulmonary hypertension. Echocardiogram indicates pulmonary //DVT prevention -Patient on Coumadin with INR 2.2 Discharge Planning Discharge home with home health for medication management, daily weights, fluid restrictions. Follow-up with primary care for treatment of sleep apnea. Maciej Wise MD Sep 23, 2016 12:19
--- NOTE | 2016-09-23 12:29 | HHI.DS ---
Discharge Summary Admission Date Sep 21, 2016 at 16:55 Discharge Date: Sep 23, 2016 Admitting Diagnosis CHF exacerbation (1) Acute on chronic diastolic congestive heart failure ICD Code: I50.33 Diagnosis: Principal (2) Shortness of breath dyspnea ICD Code: R06.02 Diagnosis: Principal (3) Elevated brain natriuretic peptide (BNP) level ICD Code: R79.89 Diagnosis: Principal (4) Chronic kidney disease, stage 3 ICD Code: N18.3 Diagnosis: Secondary (5) Hypertension ICD Code: I10 Diagnosis: Secondary (6) Atrial fibrillation ICD Code: I48.91 Diagnosis: Secondary Procedures No invasive procedures performed. Echocardiogram performed. Please see report. Brief History - From Admission 71-year-old female with known history of chronic diastolic congestive heart failure, chronic kidney disease stage III, pulmonary hypertension, atrial fibrillation, obstructive sleep apnea, history of tobacco use, daily ETOH use, Mnire's disease, Lupus, Rheumatoid arthritis who presented to hospital because of shortness of breath, dyspnea on exertion. Patient indicates all of her symptoms started back around September 03 when she went to her primary medical doctor's office and was told to discontinue her Lasix. She went to her bottom brusher office a few days later, Dr. Thompson who notified her to continue taking her Lasix at half dose of 20 mg a day. Patient states that ever since she decreased her Lasix she progressively got more short of breath, dyspnea on exertion, lower extremity swelling. Patient states that she drinks 4+ bottle sales a day and to Gin and tonics at least 3 times a week. She denies being told to be on a fluid restriction. She does not check her weights daily. She indicates that anything she has lost over 20 pounds since the last time she was here in the hospital. Patient indicates that whenever she gets short of breath and dyspneic she develops a pressure type sensation over her entire lower ribs whenever she takes a deep breath. She is not expressing any discomfort at this time. Denies any nausea, vomiting, diaphoresis, lightheadedness, dizziness. CBC/BMP: 09/23/16 0525 09/23/16 0525 Significant Findings Laboratory Tests Test 09/21/16 09/22/16 09/23/16 15:10 06:05 05:25 Red Blood Count 3.95 MIL/MM3 3.53 MIL/MM3 3.57 MIL/MM3 (4.00-5.30) (4.00-5.30) (4.00-5.30) Mean Corpuscular Hemoglobin 31.7 % 31.5 % Concent (32.0-36.0) (32.0-36.0) Red Cell Distribution Width 19.0 % 18.6 % 19.3 % (11.6-17.2) (11.6-17.2) (11.6-17.2) Neutrophils (%) (Auto) 76.6 % (16.0-70.0) Monocytes (%) (Auto) 8.5 % (0.0-8.0) 8.7 % (0.0-8.0) 10.5 % (0.0-8.0) Basophilic Stippling FAINT (NORMAL) Prothrombin Time 26.5 SEC 24.9 SEC 28.2 SEC (9.8-11.6) (9.8-11.6) (9.8-11.6) Activated Partial 33.4 SEC Thromboplast Time (24.3-30.1) Blood Urea Nitrogen 34 MG/DL (7-18) 35 MG/DL (7-18) 30 MG/DL (7-18) Creatinine 1.80 MG/DL 1.90 MG/DL 1.60 MG/DL (0.50-1.00) (0.50-1.00) (0.50-1.00) Estimat Glomerular Filtration 28 ML/MIN (>89) 26 ML/MIN (>89) 32 ML/MIN (>89) Rate Random Glucose 135 MG/DL (74-106) Calcium Level 8.4 MG/DL (8.5-10.1) Troponin I LESS THAN 0.02 NG/ML (0.02-0.05) B-Type Natriuretic Peptide 598 PG/ML (0-100) Digoxin Level 0.5 NG/ML (0.8-2.0) Hemoglobin 10.6 GM/DL 11.2 GM/DL (11.6-15.3) (11.6-15.3) Hematocrit 33.4 % 34.5 % (35.0-46.0) (35.0-46.0) Carbon Dioxide Level 34.5 MEQ/L 37.3 MEQ/L (21.0-32.0) (21.0-32.0) Aspartate Amino Transf 13 U/L (15-37) (AST/SGOT) Albumin 3.0 GM/DL 3.2 GM/DL (3.4-5.0) (3.4-5.0) Eosinophils (%) (Auto) 4.3 % (0.0-4.0) Anion Gap 4 MEQ/L (5-15) Imaging Last Impressions Chest X-Ray 09/21/16 1504 Signed Impressions: Service Date/Time: Friday, September 21, 2016 15:10 - CONCLUSION: No infiltrate or other acute abnormality demonstrated. Mild, stable compensated cardiomegaly. Wenceslao Hill MD Hospital Course Elevated BNP in the 500s on admission, together with bilateral lower extremity edema, shortness of breath. Echocardiogram suggested severe pulmonary hypertension. Patient was diuresed with improvement in shortness of breath, as well as bilateral lower extremity edema.. Creatinine improved from 1.8 on admission to 1.6 at discharge. Patient has diagnosis of obstructive sleep apnea , and is on CPAP in [place] (where she spends 6mos of year, however came to the [facility] in August, without her CPAP. She will follow-up with her Medicare, pulmonology as outpatient to obtain CPAP for obstructive sleep apnea. We will increase dose of Lasix at home (she had been taking 20 mg of Lasix daily for the past month.). She will have home health for medication management, daily weights, fluid restrictions of 1800 mL. Also, metoprolol was decreased from 50 mg daily to 25 mg daily due to suspected diastolic dysfunction, and the fact that beta blockers are not helpful for diastolic dysfunction or for pulmonary hypertension. Digoxin level was checked and found to be 0.5. Patient will be sent home on digoxin 0.125 daily. Recheck in 1 week to primary. For problem-based summary from most recent progress note, please see below. ====09/23/16===== Patient reveals that she spends half the year in [place], has a CPAP machine for sleep apnea over there, however does not have one here, and does not want to go through the sleep study here to get one. --I advised following up with primary care, obtaining sleep study, CPAP for treatment of obstructive sleep apnea, which is likely the cause of her pulmonary hypertension. Patient will adhere to daily weights at home. We'll have home health for CHF education. We'll pursue sleep study with primary care doctor. She had been taking half of her 40 mg Lasix at home. She will take the whole tablet now. //Acute on chronic diastolic congestive heart failure -Patient presented with shortness of breath, dyspnea on exertion, lower extremity edema -Likely secondary to multiple reasons to include decrease in diuretic, increase fluid intake at home, no daily management of her CHF -Patient did have elevated BNP, however chest x-ray did not indicate any congestive pattern -Patient given Lasix 40 mg IV 1, we'll continue Lasix 40 mg daily -Most recent echocardiogram 10/25/15 shows ejection fraction 55%. Normal systolic function. Very mild aortic stenosis -Beta shelia will be continued, med reconciliation needs to be updated, does indicate she was on BEULAH inhibitor this needs to be confirmed -Fluid restriction 1800 ml/day at home -Patient will adhere to daily weights at home. We'll have home health for CHF education. We'll pursue sleep study with primary care doctor. //Chronic kidney disease stage III, stable -Upon review medical records it does appear as if her renal functions are at baseline -Suspect chronic cardiorenal syndrome secondary to pulmonary hypertension. Expect to improve with appropriate treatment. -Continue monitor renal function -Avoid nephrotoxins //Chronic atrial fibrillation -Continue home medication to include beta shelia, digoxin and Coumadin //Alcohol abuse, monitor for withdrawals -Continue thiamine and folic acid -Ativan as needed for seizures -Librium as needed for withdrawals //sleep apnea. //severe pulmonary hypertension. Likely caused by untreated sleep apnea. -hypertension, patient confirms a diagnosis of pulmonary hypertension //Pulmonary hypertension. Echocardiogram indicates pulmonary //DVT prevention -Patient on Coumadin with INR 2.2 Pt Condition on Discharge: Good Discharge Disposition: Disch w/ Home Health Serv Discharge Time: > 30 minutes Discharge Instructions DIET: Follow Instructions for: Heart Healthy Diet, Low Sodium Diet Fluid Restrictions: 1800 Activities you can perform: Regular-No Restrictions Follow up Referrals: PCP Follow-up - 1 Week with Shauna Mendoza MD Pulmonology - 1 Week SNF/[facility]AY/ with [facility] New Orders: DIGOXIN - 1 Week RENAL FUNCTION PANEL - 1 Week New Medications: Digoxin (Digoxin) 0.125 Mg Tab 0.125 MG PO DAILY heart Days 30 TAB Metoprolol Succinate ER 24 HR (Metoprolol Succinate ER 24 HR) 50 Mg Tab 25 MG PO DAILY heart #30 TAB Continued Medications: Cholecalciferol (Vitamin D-1000) 1,000 Unit Tab 5000 UNITS PO DAILY Nutritional Supplement #1 Ref 0 BOTTLE Furosemide (Furosemide) 40 Mg Tab 40 MG PO DAILY #30 Ref 0 TAB Magnesium Chloride (Mag-Delay) 64 Mg Tab Unknown Dose PO DAILY Ref 0 TAB Warfarin (Warfarin) 3 Mg Tab 3.75 MG PO HS Blood Clot Prevention #30 Ref 0 TAB Discontinued Medications: Digoxin (Digoxin) 0.25 Mg Tab 0.0625 MG PO FRIDAY TAKEN FRI,FRI, Regulate Heart Beat #30 Ref 0 TAB Metoprolol Succinate ER 24 HR (Metoprolol Succinate ER 24 HR) 50 Mg Tab 50 MG PO DAILY #30 Ref 0 TAB Maciej Wise MD Sep 23, 2016 12:29
== END 2016-09-23 12:10 | disposition home health service (06) ==
LOC: PHED 14:41 → PHEDA 16:55 → PH3B 18:07
PROVIDERS: ADMIT Internal Medicine; ATTEND Internal Medicine
DX: I50.33 Acute on chronic diastolic (congestive) heart failure (principal); I13.0 Hypertensive heart and chronic kidney disease with heart failure and stage 1 through stage 4 chronic kidney disease, or unspecified chronic kidney disease; N18.3 Chronic kidney disease, stage 3 (moderate); I48.2 Chronic atrial fibrillation; M06.9 Rheumatoid arthritis, unspecified; J44.9 Chronic obstructive pulmonary disease, unspecified; G47.33 Obstructive sleep apnea (adult) (pediatric); R79.89 Other specified abnormal findings of blood chemistry; M32.9 Systemic lupus erythematosus, unspecified; M81.0 Age-related osteoporosis without current pathological fracture; I27.2 Other secondary pulmonary hypertension; F10.10 Alcohol abuse, uncomplicated; Z87.891 Personal history of nicotine dependence; Z86.711 Personal history of pulmonary embolism; Z79.01 Long term (current) use of anticoagulants; Z79.899 Other long term (current) drug therapy
CPT/HCPCS: 71010; 80053; 80069; 80162; 82550; 83735; 83880; 84484; 85025; 85610; 85730; 93005; 93306; 96374; 97162; 99285; G0378; G8987; G8988; J1940

== ENCOUNTER → 2016-10-21 | Outpatient (CLI) | payer MEDICARE, OTHER ==
[~2016-10-21] MED LIST changes: -CHOL50006 PO; -DICL50TA2 PO; -DIPH25 PO; -DUONI NEB; +FURO40TA PO; -HYDRO.5%T TOP; -LISI2.5T3 PO; +MAG-TAB PO; -MAGN500T4 PO; -METO25TA6 PO; +METO50TA11 PO; -ONDA4 PO; -OXYC5 PO; -PROT40TA PO; -REGL5TAB PO; -ROBIDMS PO; +VITA1000 PO; -WARF-20 PO; +WARF-58 PO
--- NOTE | 2016-10-23 09:49 | RSPPFT ---
DATE OF PROCEDURE: 10/21/16 COMMENTS: Spirometry demonstrates an FEV1 of 0.7 at 37% of predicted, FVC of 1.0 at 41%, FEF 25-75 at 24%. Post-bronchodilator study demonstrated mild improvements in the FEV1 and in the FEF 25-75 suggesting a response. Lung volumes demonstrated a reduced TLC indicating restrictive disease. Diffusion capacity was not completed due to a technical problem. Flow volume loops indicate restrictive disease. IMPRESSION: 1. Moderate restrictive disease. 2. Additional mild to moderate obstructive disease. 3. Mild response to use of bronchodilator indicating some reversibility.
== END ==
LOC: PHRSP 09:07
DX: R06.00 Dyspnea, unspecified (principal); G47.32 High altitude periodic breathing; R05 Cough
CPT/HCPCS: 94060; 94726; 94729